=== PATIENT | female | born 1990 | race Caucasian/White ===

== ENCOUNTER 2021-07-14 09:50 | Emergency (ER) | payer OTHER ==
[~2021-07-14] VITALS: Ht 162.6 cm; Wt 108.9 kg
[2021-07-14 09:58] VITALS: BP 159/100
--- NOTE | 2021-07-14 10:12 | NUR ---
pt ambulated to bed 11.
--- NOTE | 2021-07-14 10:26 | NUR ---
pt c/o left ear pain x3 days.
[2021-07-14] MEDS ORDERED: COROTSOL OT (11:28)
[2021-07-14] MEDS ORDERED: LIDO100S RIGHT EAR (11:28)
[2021-07-14] MEDS ORDERED: ACET-8386 PO (11:28)
[2021-07-14 11:38] VITALS: BP 122/68
--- NOTE | 2021-07-14 11:38 | NUR ---
Patient discharged with v/s stable. Written and verbal after care instructions given and explained. Patient verbalized understanding. Ambulatory with steady gait. All questions addressed prior to discharge. Advised to follow up with PMD.
== END 2021-07-14 11:38 | disposition home or self-care (01) ==
LOC: MED 09:50
DX: H60.502 Unspecified acute noninfective otitis externa, left ear (principal); Z79.899 Other long term (current) drug therapy
CPT/HCPCS: 99283